=== PATIENT | female | born 1975 | race Caucasian/White ===

== ENCOUNTER → 2016-08-01 | Outpatient (CLI) | payer SELFPAY ==
[2016-08-01 12:54] LABS: FREE T4 (FREE THYROXINE) 1.28 ng/dL (0.93-1.71)
== END ==
LOC: MOB LAB 10:03
PROVIDERS: ATTEND Internal Medicine
DX: F41.9 Anxiety disorder, unspecified (principal); L40.50 Arthropathic psoriasis, unspecified; F17.210 Nicotine dependence, cigarettes, uncomplicated
CPT/HCPCS: 36415; 84439; 84443

== ENCOUNTER → 2016-08-09 | Outpatient (CLI) | payer BC | LOC: MOB LAB 14:45 | PROVIDERS: ATTEND Internal Medicine | DX: R94.6 Abnormal results of thyroid function studies (principal) | CPT/HCPCS: 36415; 84481 ==

== ENCOUNTER 2016-10-16 19:59 | Emergency (ER) | payer OTHER, BC ==
[2016-10-16 20:32] VITALS: RESP 16; TEMP 98.1
--- NOTE | 2016-10-16 22:08 | PDOC ---
Hand / Wrist Injury HPI - General Chief Complaint: Upper Extremity Problem/Injury Stated Complaint: LEFT HAND INJURY Date Seen by Provider: 10/16/16 Time Seen by Provider: 20:15 Source: POSITIVE: Patient Exam Limitations: POSITIVE: No limitations Nurse's Notes Reviewed & Considered: Yes - History of Present Illness Initial Comments: The patient is a 41-year-old female who presents to the emergency department with an injury to her left index finger. She works here at the hospital in housekeeping. She was working last night when she got her left index finger pinched in a wheelchair that she was putting away. She had some bleeding from around the edge of the nail. She clean the wound right away and has had it covered with a Band-Aid. She does have some throbbing. She denies any fever, any other associated injury. Her last tetanus shot was approximately 4 years ago. Have you received a tetanus shot in the past 10 years?: Yes - Patient Home Medications Home Medications: Home Medications Escitalopram Oxalate 1 tab PO DAILY #90 tab 02/29/16 Ibuprofen 1 tab PO TID #270 tab 02/29/16 Bupropion HCl [Wellbutrin Sr] 1 tab-cap PO DAILY #30 tab-cap 08/15/16 Pantoprazole Sodium [Protonix] 1 tab PO DAILY #90 tab-cap 08/30/16 Hydrocodone/Acetaminophen [Hydrocodon-Acetaminophn 10-325] 1 tab-cap PO Q4-6H # 155 tab-cap 09/19/16 - Patient Allergies Allergies/Adverse Reactions: Allergies Allergy/AdvReac Type Severity Reaction Status Date / Time No Known Allergies Allergy Verified 10/16/16 20:04 Past Medical History - heen HEENT History: Denies History Cardiovascular History: Denies History Respiratory History: Denies History Additional Respiratory History: ADOLESCENT. NO PROBLEMS ADULT Gastrointestinal History: GERD, Peptic Ulcer Disease Additional Gastrointestinal History: HEP C REACTIVE DECEMBER 2013 Genitourinary History: Denies History Endocrine History: Denies History Musculoskeletal History: Arthritis Prosthesis or Implant: No Neurological History: Denies History Blood Disorders: Previous Bld Transfusions Psychiatric History: Anxiety Disorders History of Sexually Transmitted Diseases: No Female Reproductive History: Denies History Obstetrical History: Denies History Cancer History: Denies History In Past Year Been Physically Harmed or Verbally Threatened: No History of MDRO: No History of Other Communicable Diseases: No Tobacco Use: Current Every Day Smoker Alcohol Use: None Substance Use Type: None Previous Surgical History: Yes Type / Date of Surgery: C SECTION X 2/ HYST/ LATERAL INTERNAL SPHINCTERECTOMY Anesthesia Reactions: No Malignant Hyperthermia: No Significant Family History: Other (please comment) Additional Family History: endocarditis Past Medical History Reviewed: Reviewed - No Changes ROS - Limitations ROS Limitations: No Limitations (Review of systems otherwise noncontributory) Hand / Wrist Injury Exam - General Appearance General Appearance: POSITIVE: Alert, Cooperative, No Acute Distress - Extremities Upper Extremity: POSITIVE: Other (examination left index finger does reveal tenderness to the fingertip with associated swelling, there is an open wound to the lateral aspect adjacent to the mid nailbed, there is no subungual hematoma, the skin is somewhat macerated from the bandage that is been in place) Neurovascular / Tendon: POSITIVE: Sensation Normal, Motor Normal, No Vascular Compromise Hand / Wrist Injury Progress - Results Reviewed by me Xrays/CTs/US Reviewed by me: Yes Radiology Findings: X-ray of the left index finger is negative for fracture - Patient's Progress MDM / ED Course: There is no visible fracture, she does have a crush injury with small open wound to the distal aspect of the left index finger. There is no evidence of infection at this time. The skin is somewhat macerated from the bandage being in place. I did recommend that she keep the wound covered while she is working and then leave open while at rest at home. She will continue to monitor for any sign of infection. She is advised return to the emergency room if any worsening or change in symptoms. She'll follow-up with primary care as needed. - Consult Counseled: POSITIVE: Patient, RE: Radiology Results, RE: DX, RE: Need for F/U Patient Care Time - Estimated PCT Patient Care Time (In Minutes): 10 Vital Signs - Recent Vital Signs Vital Signs: Vital Signs (Last 8 hours) Temp Pulse Resp BP Pulse Ox 10/16/16 20:00 98.1 F 85 16 131/72 96 - VS Reviewed Vital Signs Reviewed: Yes Discharge Clinical Impression: Crush injury to finger Discharge Disposition: Discharged to Home Condition: Stable Patient Instructions Given at Discharge: Crush Injury (ED) Additional Instructions: There did not appear to be any fracture on the x-ray of your finger. Recommend that you keep your finger tip covered while at work and active, leave open when you are resting. Tylenol or ibuprofen as needed for pain. Return to the emergency room if increased pain or swelling, drainage, fever or other sign of infection. Follow Up With: MOIZ MAGDALENO [Primary Care Provider] -
--- NOTE | 2016-10-17 09:02 | DI ---
XR FINGERS MIN 2VW,10/16/2016 8:18 PM: Clinical History: Crush injury Previous Exam: None at this facility. Findings: 3 views of the left index finger are obtained, and demonstrate anatomic alignment without fractures. Surrounding soft tissues are unremarkable. Impression: No fractures.
== END 2016-10-16 20:37 | disposition home or self-care (01) ==
LOC: ER 19:59
DX: S61.201A Unspecified open wound of left index finger without damage to nail, initial encounter (principal); W23.0XXA Caught, crushed, jammed, or pinched between moving objects, initial encounter; Y92.239 Unspecified place in hospital as the place of occurrence of the external cause; Y99.0 Civilian activity done for income or pay
CPT/HCPCS: 73140; 99282

== ENCOUNTER 2016-11-16 00:33 | Emergency (ER) | payer BC ==
[2016-11-16 01:03] VITALS: RESP 20; TEMP 98.1
--- NOTE | 2016-11-16 01:03 | PDOC ---
Gen Adult / Medical Screen HPI - General Chief Complaint: General Medical Stated Complaint: SORES IN RIGHT NARE AND MOUTH Date Seen by Provider: 11/16/16 Time Seen by Provider: 00:58 Source: POSITIVE: Patient Exam Limitations: POSITIVE: No limitations Nurse's Notes Reviewed & Considered: Yes - Indicators Temperature Between 95 and 101 Degrees: Yes Respirations Between 12 and 20: Yes Blood Pressure Between 100-165 (sys) and 60-100 (gary): Yes Pulse Range Between 60-105 (100 for age > 60 years): Yes Severe Pain (Greater than 5/10 Reported): No Chest or Abdominal Pain: No Inability to Walk: No Pt Reports Active High Risk Cond. (TB/Hepatitis/HIV/Chemo): No Abnormal Mental Status: No - History of Present Illness Initial Comments: This 41-year-old female comes in today with a chief complaint of sores in her mouth and right naris. This patient has been under significant increasing stress over the last 48 hours, and over the last 24 hours has developed pain and sores in her right naris and mouth. She states she also has a sore throat, and general overall feelings of fatigue. She denies any fever chills or sweats , chest pain, shortness of breath, or cough. She denies any hematuria dysuria, no nausea vomiting or diarrhea. Body Location Affected: REPORTS: Other (Right nares and oropharynx.) Timing: REPORTS: Abrupt Duration: <24 hours Similar Symptoms Previously: No Recent Care Received: REPORTS: Denies Any Prior Injuries Related to Current Complaint?: No - Patient Home Medications Home Medications: Home Medications Escitalopram Oxalate 1 tab PO DAILY #90 tab 02/29/16 Ibuprofen 1 tab PO TID #270 tab 02/29/16 Pantoprazole Sodium [Protonix] 1 tab PO DAILY #90 tab-cap 08/30/16 Bupropion HCl [Bupropion Hcl Sr] 1 tab PO BID #60 tab 10/22/16 Hydrocodone/Acetaminophen [Hydrocodon-Acetaminophn 10-325] 1 tab-cap PO Q4-6H PRN #155 tab-cap 10/22/16 Oxycodone HCl [Oxycodone Hcl Er] 1 tab PO Q12H #34 tab 11/06/16 - Patient Allergies Allergies/Adverse Reactions: Allergies Allergy/AdvReac Type Severity Reaction Status Date / Time No Known Drug Allergies Allergy NOT Verified 11/16/16 00:46 APPLICABLE PAIN CONTRACT AdvReac Unknown NOT Uncoded 11/16/16 00:46 APPLICABLE Past Medical History - heen HEENT History: Denies History Cardiovascular History: Denies History Respiratory History: Denies History Additional Respiratory History: ADOLESCENT. NO PROBLEMS ADULT Gastrointestinal History: GERD, Peptic Ulcer Disease Additional Gastrointestinal History: HEP C REACTIVE DECEMBER 2013 Genitourinary History: Denies History Endocrine History: Denies History Musculoskeletal History: Arthritis Prosthesis or Implant: No Neurological History: Denies History Blood Disorders: Previous Bld Transfusions Psychiatric History: Anxiety Disorders History of Sexually Transmitted Diseases: No Female Reproductive History: Denies History Obstetrical History: Denies History Cancer History: Denies History In Past Year Been Physically Harmed or Verbally Threatened: No History of MDRO: No History of Other Communicable Diseases: No Tobacco Use: Current Every Day Smoker Alcohol Use: None Substance Use Type: None Previous Surgical History: Yes Type / Date of Surgery: C SECTION X 2/ HYST/ LATERAL INTERNAL SPHINCTERECTOMY Anesthesia Reactions: No Malignant Hyperthermia: No Significant Family History: Other (please comment) Additional Family History: endocarditis ROS - Limitations ROS Limitations: No Limitations Constitution: REPORTS: Denies Symptoms Cardiovascular: REPORTS: Denies Cardiac Symptoms Respiratory: REPORTS: Denies Resp Symptoms Neurological: REPORTS: Denies Neuro Symptoms Gastrointestinal: REPORTS: Denies GI Symptoms Endocrine: REPORTS: Fatigue Musculoskeletal: REPORTS: Denies MS Symptoms Genitourinary: REPORTS: Denies Symptoms Eyes: REPORTS: Denies Symptoms ENT: REPORTS: Nose Pain, Sore Throat Skin: REPORTS: Denies Skin Symptoms Lympathic: REPORTS: Denies Lympathic Symptoms Immunologic: POSITIVE: Denies Symptoms Psychiatric: POSITIVE: Denies Psych Symptoms Gen Adult/Medical Screen Exam - General Appearance General Appearance: POSITIVE: Alert, Cooperative, No Acute Distress, No Evidence of Trauma - HEENT HEENT: POSITIVE: Head Inspection Nml, Eyes Inspection Nml, Ears Inspection Nml, Pharynx Inspect. Nml, PERRL, EOMI, Oral Lesions, Other (Nasal lesions) - Pupils Pupil Size: 5 mm: Bilateral - Neck Neck: POSITIVE: Normal Inspection, Thyroid Normal - Respiratory Respiratory: POSITIVE: No Respiratory Distress, Breath Sounds Normal, Chest Non- Tender - Cardiovascular Cardiovascular: POSITIVE: Regular Rate & Rhythm, No Murmur, No Gallop, PMI Normal - Abdomen Abdomen: Soft: (All Quadrants), Normal Bowel Sounds: (All Quadrants), Denies Tenderness: (All Quadrants), No Splenomegaly: (All Quadrants), No Hepatomegaly: (All Quadrants), No Guarding: (All Quadrants), No Rebound: (All Quadrants), No Palpable Pulse: (All Quadrants), No Palpabale Mass: (All Quadrants), No Distention: (All Quadrants), No Rigidity: (All Quadrants) - Back Back: POSITIVE: Normal Inspection - Neurological / Psychological Mental Status: POSITIVE: Mood Normal, Affect Normal Orientation: POSITIVE: Oriented x 3 - Skin Skin: POSITIVE: Normal Color, Warm, Dry, No Rash - Extremities Extremity: Non-Tender: (All Extremities), Normal ROM: (All Extremities), Normal Inspection: (All Extremities) Procedures - Laceration/Wound Repair Did patient have a laceration repair: No Gen Adlt/Medical Scrn Progress - Results Reviewed by me Lab Results Reviewed: Yes Lab Results:: Laboratory Results 11/16/16 Range/Units 01:12 WBC 8.81 (4.8-10.8) 10^3/uL RBC 4.58 (4.20-5.40) 10^6/uL Hgb 12.9 (12.0-16.0) g/dL Hct 39.0 (37.0-47.0) % MCV 85.2 (81-99) FL MCH 28.2 (27-31) PG MCHC 33.1 (33-37) g/dL RDW Std Deviation 45.7 (39-50) fL RDW Coeff of Rajani 14.9 H (11.5-14.5) % Plt Count 373 H (140-350) 10*3/uL MPV 10.0 (7.4-12.2) FL Immature Gran % (Auto) 0.1 (0-5) % Neut % (Auto) 64.4 (50-80) % Lymph % (Auto) 28.8 (10-50) % Page % (Auto) 5.7 (5-15) % Eos % (Auto) 0.5 (0-8) % Baso % (Auto) 0.5 (0-1) % Immature Gran # (Auto) 0.01 10*3/UL Neut # (Auto) 5.68 10*3/UL Lymph # (Auto) 2.54 10*3/uL Page # (Auto) 0.50 (0.3-0.8) 10*3/UL Eos # (Auto) 0.04 10*3/UL Baso # (Auto) 0.04 10*3/UL WBC Morphology Comment Normal morphology (NORM) Plt Morphology Comment Normal morphology (NORM) RBC Morph Comment Normal morphology (NORM) Sodium 143 (135-145) meq/L Potassium 3.7 L (3.8-5.2) meq/L Chloride 109 (98-112) meq/L Carbon Dioxide 22 L (23-33) meq/L Anion Gap 12 (5-20) BUN 9 (7-22) mg/dL Creatinine 0.7 (0.50-1.20) mg/dL Estimated GFR > 60 (>60 ml/min/1.73m(2)) BUN/Creatinine Ratio 12.85 (6-20) Glucose 94 (78-110) mg/dL Calculated Osmolality 294.0 H (267-292) mOsm/kg Calcium 9.2 (8.7-10.7) mg/dL Total Bilirubin 0.5 (0.3-1.2) mg/dL AST 22 (8-39) IU/L ALT 22 (9-52) IU/L Alkaline Phosphatase 41 (38-126) IU/L Total Protein 6.9 (6.1-8.0) g/dL Albumin 4.3 (3.5-4.8) g/dL Globulin 2.6 (2.50-4.10) g/dL Albumin/Globulin Ratio 1.60 (1.3-2.0) mg/g - Patient's Progress Pain Medication Addressed: POSITIVE: Not Applicable Re-Examine Time: 01:46 Status: POSITIVE: Improved MDM / ED Course: Patient was evaluated, blood drawn and sent to the lab for studies, throat and nasal swabs obtained. Findings: Strep swab is negative, CBC is unremarkable, comprehensive metabolic panel is unremarkable. MRSA swab of her nose is pending. Assessment: Oral and nasal lesions. Plan: Mupirocin applied nasally twice a day and follow-up with primary care physician. Salt water gargles, hydrogen peroxide swish and spit. - Consult Counseled: POSITIVE: Patient, RE: Lab Results, RE: DX, RE: Need for F/U Patient Care Time - Estimated PCT Patient Care Time (In Minutes): 15 Vital Signs - Recent Vital Signs Vital Signs: Vital Signs (Last 8 hours) Temp Pulse Resp BP Pulse Ox 11/16/16 00:47 98.1 F 81 20 131/61 95 - VS Reviewed Vital Signs Reviewed: Yes Discharge Clinical Impression: Sore in nose Discharge Disposition: Discharged to Home Condition: Stable Patient Instructions Given at Discharge: Analgesic/Antihistamine/Antitussive ( By mouth)
[2016-11-16 01:21] LABS: BASOPHILS # (AUTO) 0.04 10*3/UL; BASOPHILS % (AUTO) 0.5 % (0-1); EOSINOPHILS # (AUTO) 0.04 10*3/UL; EOSINOPHILS % (AUTO) 0.5 % (0-8); HEMOGLOBIN 12.9 g/dL (12.0-16.0); LYMPHOCYTES # (AUTO) 2.54 10*3/uL; MEAN CORPUSCULAR HEMOGLOBIN 28.2 PG (27-31); MEAN CORPUSCULAR HGB CONC 33.1 g/dL (33-37); MEAN CORPUSCULAR VOLUME 85.2 FL (81-99); MONOCYTES % (AUTO) 5.7 % (5-15); NEUTROPHILS # (AUTO) 5.68 10*3/UL; NEUTROPHILS % (AUTO) 64.4 % (50-80); RED BLOOD COUNT 4.58 10^6/uL (4.20-5.40)
[2016-11-16 01:22] LABS: PLATELET MORPHOLOGY COMMENT NORMAL MORPHOLOGY (NORM); RBC MORPHOLOGY COMMENT NORMAL MORPHOLOGY (NORM); WBC MORPHOLOGY COMMENT NORMAL MORPHOLOGY (NORM)
[2016-11-16 01:27] LABS: BLOOD UREA NITROGEN 9 mg/dL (7-22); BUN/CREATININE RATIO 12.85 (6-20); CALCIUM 9.2 mg/dL (8.7-10.7); EST GLOMERULAR FILTRATION > 60 (>60 ml/min/1.73m(2)); SERUM ALBUMIN 4.3 g/dL (3.5-4.8)
[2016-11-16] MEDS ORDERED: Mupirocin Nasal Oint 2% 1 gm Tube ONE (01:57)
[2016-11-16] MEDS ORDERED: Mupirocin Nasal Oint 2% 1 gm Tube ENOS SCH (09:00)
== END 2016-11-16 02:02 | disposition home or self-care (01) ==
LOC: ER 00:33
DX: J34.89 Other specified disorders of nose and nasal sinuses (principal); J02.9 Acute pharyngitis, unspecified
CPT/HCPCS: 36415; 80053; 85025; 87641; 87802; 99283

== ENCOUNTER 2016-12-25 20:06 | Emergency (ER) | payer OTHER ==
[2016-12-25 20:20] VITALS: RESP 18; TEMP 98.3
--- NOTE | 2016-12-25 20:35 | PDOC ---
Hand / Wrist Injury HPI - General Chief Complaint: Upper Extremity Problem/Injury Stated Complaint: LEFT HAND HURTS Date Seen by Provider: 12/25/16 Time Seen by Provider: 20:25 Source: POSITIVE: Patient Exam Limitations: POSITIVE: No limitations - History of Present Illness Initial Comments: Patient is a 41-year-old female who presents to the emergency department for evaluation of left hand pain. This started prior to arrival. Left sided. Worse with movement. No relieving factors. Moderate in overall severity. Patient is not sure exactly what caused the initial pain though when she was pushing a large trashcan had pain in the hand. No significant swelling or erythema. No fevers. No numbness or weakness. Have you received a tetanus shot in the past 10 years?: Yes - Patient Home Medications Home Medications: Home Medications Pantoprazole Sodium [Protonix] 1 tab PO DAILY #90 tab-cap 08/30/16 Ibuprofen 1 tab PO TID #270 tab 12/14/16 Hydrocodone/Acetaminophen [Hydrocodon-Acetaminophn 10-325] 1 - 2 tab PO ASDIR PRN #155 tab 12/19/16 Escitalopram Oxalate [Lexapro] 10 mg PO DAILY 12/25/16 - Patient Allergies Allergies/Adverse Reactions: Allergies Allergy/AdvReac Type Severity Reaction Status Date / Time No Known Drug Allergies Allergy NOT Verified 12/25/16 20:08 APPLICABLE PAIN CONTRACT AdvReac Unknown NOT Uncoded 12/19/16 10:05 APPLICABLE Past Medical History - heen HEENT History: Denies History Cardiovascular History: Denies History Respiratory History: Denies History Additional Respiratory History: ADOLESCENT. NO PROBLEMS ADULT Gastrointestinal History: GERD, Peptic Ulcer Disease Additional Gastrointestinal History: HEP C REACTIVE DECEMBER 2013 Genitourinary History: Denies History Endocrine History: Denies History Musculoskeletal History: Arthritis Prosthesis or Implant: No Neurological History: Denies History Blood Disorders: Previous Bld Transfusions Psychiatric History: Anxiety Disorders History of Sexually Transmitted Diseases: No Female Reproductive History: Denies History Obstetrical History: Denies History Cancer History: Denies History In Past Year Been Physically Harmed or Verbally Threatened: No History of MDRO: No History of Other Communicable Diseases: No Tobacco Use: Current Every Day Smoker Alcohol Use: None Substance Use Type: None Previous Surgical History: Yes Type / Date of Surgery: C SECTION X 2/ HYST/ LATERAL INTERNAL SPHINCTERECTOMY Anesthesia Reactions: No Malignant Hyperthermia: No Significant Family History: Other (please comment) Additional Family History: endocarditis Past Medical History Reviewed: Reviewed - No Changes ROS - Limitations ROS Limitations: No Limitations Musculoskeletal: REPORTS: Other (Left hand pain) Skin: REPORTS: Denies Skin Symptoms Hand / Wrist Injury Exam - General Appearance General Appearance: POSITIVE: Alert, Cooperative, No Acute Distress - Extremities Upper Extremity: POSITIVE: Other (there is tenderness to palpation over the interosseous muscles on the ulnar aspect of the left hand. No swelling. Full range of motion of the wrist. Good range of motion of the hands. Neurovascularly intact) Neurovascular / Tendon: POSITIVE: Sensation Normal, Motor Normal, No Vascular Compromise, Tendon Function Normal Skin: POSITIVE: Warm, Dry - HEENT HEENT: POSITIVE: Head Inspection Nml - Respiratory / CVS Respiratory / CVS: POSITIVE: Breath Sounds Normal, No Respiratory Distress, Heart Sounds Normal Patient Care Time - Estimated PCT Patient Care Time (In Minutes): 5 Vital Signs - Recent Vital Signs Vital Signs: Vital Signs (Last 8 hours) Temp Pulse Resp BP Pulse Ox 12/25/16 20:06 98.3 F 69 18 116/75 93 - VS Reviewed Vital Signs Reviewed: Yes Discharge Clinical Impression: Pain of left hand Discharge Disposition: Discharged to Home Condition: Good Patient Instructions Given at Discharge: Hand Sprain (ED) Additional Instructions: Thank you for coming to the emergency department. You likely have a sprain of your hand or an overuse injury. Please ice the hand. Use ibuprofen or Aleve as needed for pain. Please use splint to help with discomfort. Please rest your hand. Follow-up with your primary care provider if not improving in one week. Please return to the emergency department for any worsening symptoms.
== END 2016-12-25 20:43 | disposition home or self-care (01) ==
LOC: ER 20:06
DX: M79.642 Pain in left hand (principal); X50.9XXA Other and unspecified overexertion or strenuous movements or postures, initial encounter; Y92.239 Unspecified place in hospital as the place of occurrence of the external cause; Y99.0 Civilian activity done for income or pay
CPT/HCPCS: 99282